=== PATIENT | male | born 1990 | race Hispanic/Latino ===

== ENCOUNTER 2017-03-11 22:37 | Observation (INO) | payer SELFPAY ==
[2017-03-11 22:50] VITALS: O2SAT 99
--- NOTE | 2017-03-11 23:36 | ED PDOC ---
HPI: Psych/Substance Abuse Time Seen by Provider: 03/11/17 22:46 Chief Complaint (Nursing): Psychiatric Evaluation Chief Complaint (Provider): Psychiatric Evaluation History Per: Patient History/Exam Limitations: no limitations Modifying Factor(s): Alcohol Additional Complaint(s): 27 year old [place] male, no past medical history, brought to the ED by EMS for crisis evaluation after a friend of the patient received a text message in which the patient stated that he was having thoughts of self injurious behavior. The patient reports no actual intention of hurting himself. He admits to impulsiveness and also to alcohol use. At present, he denies Suicidal ideation or Homicidal ideation. Past Medical History Reviewed: Historical Data, Nursing Documentation, Vital Signs Vital Signs: Last Vital Signs Temp 98.5 F 03/11/17 22:43 Pulse 86 03/11/17 22:43 Resp 20 03/11/17 22:43 BP 145/75 03/11/17 22:43 Pulse Ox 99 03/11/17 22:43 - Medical History PMH: No Chronic Diseases - Surgical History Surgical History: No Surg Hx - Family History Family History: States: No Known Family Hx - Social History Alcohol: Occasional Drugs: Denies - Allergies Allergies/Adverse Reactions: Allergies Allergy/AdvReac Type Severity Reaction Status Date / Time No Known Allergies Allergy Verified 03/11/17 22:42 Review of Systems Psych: Positive for: Suicidal ideation (per history) Physical Exam - Reviewed Nursing Documentation Reviewed: Yes Vital Signs Reviewed: Yes - Physical Exam Appears: Positive for: Non-toxic, No Acute Distress Head Exam: Positive for: ATRAUMATIC, NORMOCEPHALIC Skin: Positive for: Normal Color, Warm, Dry Eye Exam: Positive for: Normal appearance, EOMI, PERRL Neck: Positive for: Normal, Painless ROM, Supple Cardiovascular/Chest: Positive for: Regular Rate, Rhythm. Negative for: Murmur Respiratory: Positive for: Normal Breath Sounds. Negative for: Respiratory Distress Gastrointestinal/Abdominal: Positive for: Normal Exam, Soft. Negative for: Tenderness Back: Positive for: Normal Inspection. Negative for: L CVA Tenderness, R CVA Tenderness, Other (midline tenderness) Extremity: Positive for: Normal ROM. Negative for: Pedal Edema, Deformity Neurologic/Psych: Positive for: Alert, Oriented. Negative for: Motor/Sensory Deficits - Laboratory Results Result Diagrams: 03/11/17 23:28 03/11/17 23:28 - ECG O2 Sat by Pulse Oximetry: 99 Medical Decision Making Medical Decision Making: Impression: 27 year old male for evaluation of possible suicidality in setting of alcohol use. Plan: -Labs -Crisis Evaluation -One to one Scribe Attestation: Documented by El Ramey acting as a scribe for Bertin Mathis MD. [place] Attestation: All medical record entries made by the Scribe were at my direction and personally dictated by me. I have reviewed the chart and agree that the record accurately reflects my personal performance of the history, physical exam, medical decision making, and the department course for this patient. I have also personally directed, reviewed, and agree with the discharge instructions and disposition. ED OBSERVATION - Progress Note Progress Note: 03/11/17 23:44 Patient placed on ED observation because of extensive time of work up. 03/12/17 01:20 Crisis evaluation complete. Patient cleared.. Vitals stable. Will discharge home. -- Scribe Attestation: Documented by El Ramey acting as a scribe for Bertin Mathis MD. [place] Attestation: All medical record entries made by the Scribe were at my direction and personally dictated by me. I have reviewed the chart and agree that the record accurately reflects my personal performance of the history, physical exam, medical decision making, and the department course for this patient. I have also personally directed, reviewed, and agree with the discharge instructions and disposition. 03/12/17 01:29 Disposition - Clinical Impression Clinical Impression: Alcohol-induced mood disorder - Disposition Disposition: Routine/Home Disposition Time: :44 Condition: STABLE
[2017-03-11 23:39] LABS: BASO # 0.2 K/uL (0.0-0.2); BASO % 3.1 % (0.0-2.0); EOS % 0.6 % (0.0-4.0); HEMATOCRIT 46.3 % (35.0-51.0); LYMPH # 1.9 K/uL (1.0-4.3); LYMPH % 34.6 % (20.0-40.0); MEAN CELL VOLUME 92.4 fl (80.0-94.0); MEAN CORPUSCULAR HEMOGLOBIN 31.2 pg (27.0-31.0); MEAN CORPUSCULAR HGB CONC 33.7 g/dL (33.0-37.0); MEAN PLATELET VOLUME 7.9 fl (7.2-11.7); MONO # 0.4 K/uL (0.0-0.8); MONO % 7.6 % (0.0-10.0); NEUT % 54.1 % (50.0-75.0); NRBC % 0.2 % (0.0-0.0); PLATELET COUNT 205 K/uL (130-400); RED CELL DISTRIBUTION WIDTH 12.5 % (11.5-14.5); WHITE BLOOD COUNT 5.6 K/uL (4.8-10.8)
[2017-03-11 23:47] LABS: ALB/GLOB RATIO 1.3 (1.0-2.1); ALCOHOL SERUM 299 mg/dl (0-10); ALKALINE PHOSPHATASE 52 U/L (38-126); ALT/SGPT 40 U/L (21-72); AST/SGOT 40 U/L (17-59); BILIRUBIN,TOTAL 0.5 mg/dl (0.2-1.3); BLOOD UREA NITROGEN 10 mg/dl (9-20); CALCIUM 9.1 mg/dL (8.4-10.2); CARBON DIOXIDE 26 mmol/L (22-30); CHLORIDE 105 mmol/L (98-107); GFR AFRICAN-AMERICAN > 60; GLUCOSE,RANDOM 108 mg/dL (75-110); POTASSIUM 4.5 MMOL/L (3.6-5.0); SODIUM 150 mmol/l (132-148); TOTAL PROTEIN 8.6 G/DL (6.3-8.2)
[2017-03-12 00:55] LABS: EOSINOPHIL 1 % (0-7); NEUTROPHIL 55 % (42-75); REACTIVE LYMPHOCYTES 2 % (0-0); TOTAL CELLS COUNTED 100
[2017-03-12 01:32] VITALS: BP 130/65; PULSE 63; RESP 14; TEMP 97.5
== END 2017-03-12 01:41 | disposition home or self-care (01) ==
LOC: H.ER 22:37 → H.EROBSV 23:44
PROVIDERS: ADMIT Emergency Medicine; ATTEND Emergency Medicine
DX: F10.14 Alcohol abuse with alcohol-induced mood disorder (principal); Y90.8 Blood alcohol level of 240 mg/100 ml or more
CPT/HCPCS: 80053; 82948; 85025; 99284; G0378; G0480